=== PATIENT | female | born 1985 | race Caucasian/White ===

== ENCOUNTER 2018-07-18 12:02 | Emergency (ER) | payer OTHER, SELFPAY ==
[2018-07-18 12:10] VITALS: BP 133/99; PULSE 92; RESP 14; TEMP 36.2; O2SAT 98; BMI 41.2
--- NOTE | 2018-07-18 12:36 | PC.NURSE ---
Pt is 26 weeks . States she feels itchy all over. Denies rash, denies pain, denies edema, or any other symptoms. Diagnosed with gestational diabetes, managed by diet. Otherwise uncomplicated .
--- NOTE | 2018-07-18 12:45 | ED.SKABFB ---
HPI - Skin/Abscess/Foreign Bdy <Mary Grace Bloom PA-C - Last Filed: 07/18/18 17:45> General Chief complaint: Skin/Abscess/Foreign Body Stated complaint: 'itch everywhere' Time Seen by Provider: 07/18/18 12:44 Source: patient Mode of arrival: ambulatory Limitations: no limitations History of Present Illness HPI narrative: This 32-year-old female who is at 26 weeks gestation comes in today due to severe itching. She states that this is generalized the, has not noted tendency to itch in 1 area. She has not had any rash. She has not had any diet or medication change. She has not had wheeze, dyspnea, chest discomfort or other new symptoms with this and is feeling otherwise well. She was diagnosed with gestational diabetes which she is managing well with diet. She has not felt any change in movement or activity. She states that she came in today because the itching woke her up last night Related Data Home Medications Medication Instructions Recorded Confirmed vit 21-bsjk-rouro-dha 1 tab PO DAILY 07/18/18 07/18/18 [ + DHA] Allergies Allergy/AdvReac Type Severity Reaction Status Date / Time NSAIDS (Non-Steroidal Allergy Severe Anaphylaxis Verified 07/18/18 12:14 Anti-Inflamma Review of Systems <Mary Grace Bloom PA-C - Last Filed: 07/18/18 17:45> Review of Systems All systems reviewed & are unremarkable except as noted in HPI and below Exam <Mary Grace Bloom PA-C - Last Filed: 07/18/18 17:45> Narrative Exam Narrative: GENERAL APPEARANCE: Patient sitting comfortably, in no distress. HEENT: PERRL, EOMI, no scleral icterus, normal oropharynx NECK/THYROID: Neck supple, no masses LUNGS: Clear to auscultation bilaterally. HEART: Regular rate and rhythm without murmur, normal S1, S2, no S3 or S4. EXTREMITIES: No cyanosis or edema. No calf tenderness NEUROLOGIC: Alert and oriented, normal speech, gait and coordination. DERM: No jaundice or exanthem Initial Vital Signs Initial Vital Signs: Vital Signs Temperature 97.2 F L 07/18/18 12:10 Pulse Rate 92 H 07/18/18 12:10 Respiratory Rate 14 07/18/18 12:10 Blood Pressure 133/99 H 07/18/18 12:10 Pulse Oximetry 98 07/18/18 12:10 <DO Romina Mendoza Last Filed: 07/21/18 12:28> Initial Vital Signs Initial Vital Signs: Vital Signs Temperature 97.2 F L 07/18/18 12:10 Pulse Rate 92 H 07/18/18 12:10 Respiratory Rate 14 07/18/18 12:10 Blood Pressure 133/99 H 07/18/18 12:10 Pulse Oximetry 98 07/18/18 12:10 Course <JOHN Theodore Last Filed: 07/18/18 17:45> Additional Information: Reviewed findings with attending physician Dr. Rodriguez. No signs of acute cholestasis in this well-appearing patient. She agrees reasonable to discharge patient home and have her follow up as an outpatient. Orders Ordered: ED Orders 07/18/18 13:13 Complete Blood Count AUTO DIFF Stat Comprehensive Metabolic Panel Stat Lipase Stat Vital Signs - 8 hr 07/18/18 12:10 07/18/18 14:00 07/18/18 14:19 Temperature 97.2 F L Pulse Rate 92 H 87 84 Respiratory Rate 14 20 Blood Pressure 133/99 H Blood Pressure [Left Arm] 124/75 Pulse Oximetry 98 98 99 <DO Romina Mendoza Last Filed: 07/21/18 12:28> Orders Ordered: ED Orders 07/18/18 13:13 Complete Blood Count AUTO DIFF Stat Comprehensive Metabolic Panel Stat Lipase Stat Vital Signs - 8 hr 07/18/18 12:10 07/18/18 14:00 07/18/18 14:19 Temperature 97.2 F L Pulse Rate 92 H 87 84 Respiratory Rate 14 20 Blood Pressure 133/99 H Blood Pressure [Left Arm] 124/75 Pulse Oximetry 98 98 99 MDM - Skin/Abscess/Foreign Bdy <JOHN Theodore Last Filed: 07/18/18 17:45> Lab Data Result diagrams: 07/18/18 13:13 07/18/18 13:13 Lab Results 07/18/18 07/18/18 Range/Units 13:13 13:13 WBC 10.8 (4.5-11.0) X10^3/uL RBC 4.62 (4.0-5.2) X10^6/uL Hgb 12.6 (12.0-16.0) g/dL Hct 36.6 (36-46) % MCV 79.2 L (80-100) fL MCH 27.2 (26-34) PG MCHC 34.3 (30-36) % RDW 15.5 H (11.6-14.8) % Plt Count 252 (150-400) X10^3/uL Neut % (Auto) 75.8 H (50-75) % Lymph % (Auto) 14.6 L (25-40) % [place] % (Auto) 5.6 (3-14) % Eos % (Auto) 3.5 (2-4) % Baso % (Auto) 0.5 (0-2) % Neut # (Auto) 8200 H (2320-3779) /uL Sodium 139 (137-145) mmol/L Potassium 3.9 (3.4-5.1) mmol/L Chloride 107 (98-107) mmol/L Carbon Dioxide 23 (22-32) mmol/L BUN 6 L (7-17) mg/dL Creatinine 0.40 L (0.52-1.04) mg/dL Estimated GFR > 60.0 (>60) mL/min BUN/Creatinine Ratio 15.0 (6-22) Glucose 97 (70-100) mg/dL Calcium 8.9 (8.4-10.2) mg/dL Total Bilirubin 0.3 (0.2-1.3) mg/dL AST 15 (14-36) IU/L ALT 20 (9-52) IU/L Alkaline Phosphatase 71 (38-126) U/L Total Protein 6.8 (6.3-8.2) g/dL Albumin 3.7 (3.5-5.0) g/dL Globulin 3.1 (1.7-4.1) g/dL Albumin/Globulin Ratio 1.2 (1.0-2.8) Lipase 257 (23-300) U/L Urine Dip Bedside Urine Glucose Negative Bedside Urine Bilirubin - Negative Bedside Urine Ketone - Negative Urine Specific [place] 1.020 Bedside Urine Occult Blood - Negative Bedside Urine pH 6.0 Bedside Urine Protein - Negative Bedside Urine Urobilinogen - Negative Bedside Urine Nitrite - Negative Bedside Urine Leukocytes - Negative Esterase <Alana Rodriguez DO - Last Filed: 07/21/18 12:28> Lab Data Lab Results 07/18/18 07/18/18 Range/Units 13:13 13:13 WBC 10.8 (4.5-11.0) X10^3/uL RBC 4.62 (4.0-5.2) X10^6/uL Hgb 12.6 (12.0-16.0) g/dL Hct 36.6 (36-46) % MCV 79.2 L (80-100) fL MCH 27.2 (26-34) PG MCHC 34.3 (30-36) % RDW 15.5 H (11.6-14.8) % Plt Count 252 (150-400) X10^3/uL Neut % (Auto) 75.8 H (50-75) % Lymph % (Auto) 14.6 L (25-40) % [place] % (Auto) 5.6 (3-14) % Eos % (Auto) 3.5 (2-4) % Baso % (Auto) 0.5 (0-2) % Neut # (Auto) 8200 H (2924-2714) /uL Sodium 139 (137-145) mmol/L Potassium 3.9 (3.4-5.1) mmol/L Chloride 107 (98-107) mmol/L Carbon Dioxide 23 (22-32) mmol/L BUN 6 L (7-17) mg/dL Creatinine 0.40 L (0.52-1.04) mg/dL Estimated GFR > 60.0 (>60) mL/min BUN/Creatinine Ratio 15.0 (6-22) Glucose 97 (70-100) mg/dL Calcium 8.9 (8.4-10.2) mg/dL Total Bilirubin 0.3 (0.2-1.3) mg/dL AST 15 (14-36) IU/L ALT 20 (9-52) IU/L Alkaline Phosphatase 71 (38-126) U/L Total Protein 6.8 (6.3-8.2) g/dL Albumin 3.7 (3.5-5.0) g/dL Globulin 3.1 (1.7-4.1) g/dL Albumin/Globulin Ratio 1.2 (1.0-2.8) Lipase 257 (23-300) U/L Urine Dip Bedside Urine Glucose Negative Bedside Urine Bilirubin - Negative Bedside Urine Ketone - Negative Urine Specific [place] 1.020 Bedside Urine Occult Blood - Negative Bedside Urine pH 6.0 Bedside Urine Protein - Negative Bedside Urine Urobilinogen - Negative Bedside Urine Nitrite - Negative Bedside Urine Leukocytes - Negative Esterase Discharge Plan Departure Patient Disposition: Home Clinical Impression: pruritus Discharge Date/Time: 07/18/18 14:20 Interventions: ED Discharge Assessment Last Done: 07/18/18 14:19 Instructions: DI for Itching Activity Restrictions/Additional Instructions: Please take over the counter Benadryl as needed for itching (25-50mg at bedtime and 25mg every 4-6 hours daytime). Do not drive as it can make you sleepy. You should return if you have any acute changes such as rash, fever, or facial swelling as we talked about. Otherwise please follow up with your PCP or apprentice jockey to reassess in the next few days Prescriptions: No Action vit 19-gnbt-obmec-dha [ + DHA] 28 mg iron- 975 mcg-200 mg Combo Pack 1 tab PO DAILY RF: 0 Referrals: Maranda Stern MD [Physician] - Mansoor Manuel [Primary Care Provider] - <Alana Rodriguez DO - Last Filed: 07/21/18 12:28> Cosign ED Attending Cosignature Attestation: I was immediately available in the department for consultation. This documentation has been reviewed and I agree with assessment and plan. Supervised by Alana Rodriguez DO
--- NOTE | 2018-07-18 13:02 | ED_ITS ---
HPI - Skin/Abscess/Foreign Bdy <Mary Grace Bloom PA-C - Last Filed: 07/18/18 17:45> General Chief complaint: Skin/Abscess/Foreign Body Stated complaint: 'itch everywhere' Time Seen by Provider: 07/18/18 12:44 Source: patient Mode of arrival: ambulatory Limitations: no limitations History of Present Illness HPI narrative: This 32-year-old female who is at 26 weeks gestation comes in today due to severe itching. She states that this is generalized the, has not noted tendency to itch in 1 area. She has not had any rash. She has not had any diet or medication change. She has not had wheeze, dyspnea, chest discomfort or other new symptoms with this and is feeling otherwise well. She was diagnosed with gestational diabetes which she is managing well with diet. She has not felt any change in movement or activity. She states that she came in today because the itching woke her up last night Related Data Home Medications Medication Instructions Recorded Confirmed vit 77-hgmj-mzuls-dha 1 tab PO DAILY 07/18/18 07/18/18 [ + DHA] Allergies Allergy/AdvReac Type Severity Reaction Status Date / Time NSAIDS (Non-Steroidal Allergy Severe Anaphylaxis Verified 07/18/18 12:14 Anti-Inflamma Review of Systems <Mary Grace Bloom PA-C - Last Filed: 07/18/18 17:45> Review of Systems All systems reviewed & are unremarkable except as noted in HPI and below Exam <Mary Grace Bloom PA-C - Last Filed: 07/18/18 17:45> Narrative Exam Narrative: GENERAL APPEARANCE: Patient sitting comfortably, in no distress. HEENT: PERRL, EOMI, no scleral icterus, normal oropharynx NECK/THYROID: Neck supple, no masses LUNGS: Clear to auscultation bilaterally. HEART: Regular rate and rhythm without murmur, normal S1, S2, no S3 or S4. EXTREMITIES: No cyanosis or edema. No calf tenderness NEUROLOGIC: Alert and oriented, normal speech, gait and coordination. DERM: No jaundice or exanthem Initial Vital Signs Initial Vital Signs: Vital Signs Temperature 97.2 F L 07/18/18 12:10 Pulse Rate 92 H 07/18/18 12:10 Respiratory Rate 14 07/18/18 12:10 Blood Pressure 133/99 H 07/18/18 12:10 Pulse Oximetry 98 07/18/18 12:10 <DO Romina Mendoza Last Filed: 07/21/18 12:28> Initial Vital Signs Initial Vital Signs: Vital Signs Temperature 97.2 F L 07/18/18 12:10 Pulse Rate 92 H 07/18/18 12:10 Respiratory Rate 14 07/18/18 12:10 Blood Pressure 133/99 H 07/18/18 12:10 Pulse Oximetry 98 07/18/18 12:10 Course <JOHN Theodore Last Filed: 07/18/18 17:45> Additional Information: Reviewed findings with attending physician Dr. Rodriguez. No signs of acute cholestasis in this well-appearing patient. She agrees reasonable to discharge patient home and have her follow up as an outpatient. Orders Ordered: ED Orders 07/18/18 13:13 Complete Blood Count AUTO DIFF Stat Comprehensive Metabolic Panel Stat Lipase Stat Vital Signs - 8 hr 07/18/18 12:10 07/18/18 14:00 07/18/18 14:19 Temperature 97.2 F L Pulse Rate 92 H 87 84 Respiratory Rate 14 20 Blood Pressure 133/99 H Blood Pressure [Left Arm] 124/75 Pulse Oximetry 98 98 99 <DO Romina Mendoza Last Filed: 07/21/18 12:28> Orders Ordered: ED Orders 07/18/18 13:13 Complete Blood Count AUTO DIFF Stat Comprehensive Metabolic Panel Stat Lipase Stat Vital Signs - 8 hr 07/18/18 12:10 07/18/18 14:00 07/18/18 14:19 Temperature 97.2 F L Pulse Rate 92 H 87 84 Respiratory Rate 14 20 Blood Pressure 133/99 H Blood Pressure [Left Arm] 124/75 Pulse Oximetry 98 98 99 MDM - Skin/Abscess/Foreign Bdy <JOHN Theodore Last Filed: 07/18/18 17:45> Lab Data Result diagrams: 07/18/18 13:13 07/18/18 13:13 Lab Results 07/18/18 07/18/18 Range/Units 13:13 13:13 WBC 10.8 (4.5-11.0) X10^3/uL RBC 4.62 (4.0-5.2) X10^6/uL Hgb 12.6 (12.0-16.0) g/dL Hct 36.6 (36-46) % MCV 79.2 L (80-100) fL MCH 27.2 (26-34) PG MCHC 34.3 (30-36) % RDW 15.5 H (11.6-14.8) % Plt Count 252 (150-400) X10^3/uL Neut % (Auto) 75.8 H (50-75) % Lymph % (Auto) 14.6 L (25-40) % [place] % (Auto) 5.6 (3-14) % Eos % (Auto) 3.5 (2-4) % Baso % (Auto) 0.5 (0-2) % Neut # (Auto) 8200 H (9143-2799) /uL Sodium 139 (137-145) mmol/L Potassium 3.9 (3.4-5.1) mmol/L Chloride 107 (98-107) mmol/L Carbon Dioxide 23 (22-32) mmol/L BUN 6 L (7-17) mg/dL Creatinine 0.40 L (0.52-1.04) mg/dL Estimated GFR > 60.0 (>60) mL/min BUN/Creatinine Ratio 15.0 (6-22) Glucose 97 (70-100) mg/dL Calcium 8.9 (8.4-10.2) mg/dL Total Bilirubin 0.3 (0.2-1.3) mg/dL AST 15 (14-36) IU/L ALT 20 (9-52) IU/L Alkaline Phosphatase 71 (38-126) U/L Total Protein 6.8 (6.3-8.2) g/dL Albumin 3.7 (3.5-5.0) g/dL Globulin 3.1 (1.7-4.1) g/dL Albumin/Globulin Ratio 1.2 (1.0-2.8) Lipase 257 (23-300) U/L Urine Dip Bedside Urine Glucose Negative Bedside Urine Bilirubin - Negative Bedside Urine Ketone - Negative Urine Specific [place] 1.020 Bedside Urine Occult Blood - Negative Bedside Urine pH 6.0 Bedside Urine Protein - Negative Bedside Urine Urobilinogen - Negative Bedside Urine Nitrite - Negative Bedside Urine Leukocytes - Negative Esterase <Alana Rodriguez DO - Last Filed: 07/21/18 12:28> Lab Data Lab Results 07/18/18 07/18/18 Range/Units 13:13 13:13 WBC 10.8 (4.5-11.0) X10^3/uL RBC 4.62 (4.0-5.2) X10^6/uL Hgb 12.6 (12.0-16.0) g/dL Hct 36.6 (36-46) % MCV 79.2 L (80-100) fL MCH 27.2 (26-34) PG MCHC 34.3 (30-36) % RDW 15.5 H (11.6-14.8) % Plt Count 252 (150-400) X10^3/uL Neut % (Auto) 75.8 H (50-75) % Lymph % (Auto) 14.6 L (25-40) % [place] % (Auto) 5.6 (3-14) % Eos % (Auto) 3.5 (2-4) % Baso % (Auto) 0.5 (0-2) % Neut # (Auto) 8200 H (2996-1403) /uL Sodium 139 (137-145) mmol/L Potassium 3.9 (3.4-5.1) mmol/L Chloride 107 (98-107) mmol/L Carbon Dioxide 23 (22-32) mmol/L BUN 6 L (7-17) mg/dL Creatinine 0.40 L (0.52-1.04) mg/dL Estimated GFR > 60.0 (>60) mL/min BUN/Creatinine Ratio 15.0 (6-22) Glucose 97 (70-100) mg/dL Calcium 8.9 (8.4-10.2) mg/dL Total Bilirubin 0.3 (0.2-1.3) mg/dL AST 15 (14-36) IU/L ALT 20 (9-52) IU/L Alkaline Phosphatase 71 (38-126) U/L Total Protein 6.8 (6.3-8.2) g/dL Albumin 3.7 (3.5-5.0) g/dL Globulin 3.1 (1.7-4.1) g/dL Albumin/Globulin Ratio 1.2 (1.0-2.8) Lipase 257 (23-300) U/L Urine Dip Bedside Urine Glucose Negative Bedside Urine Bilirubin - Negative Bedside Urine Ketone - Negative Urine Specific [place] 1.020 Bedside Urine Occult Blood - Negative Bedside Urine pH 6.0 Bedside Urine Protein - Negative Bedside Urine Urobilinogen - Negative Bedside Urine Nitrite - Negative Bedside Urine Leukocytes - Negative Esterase Discharge Plan Departure Patient Disposition: Home Clinical Impression: pruritus Discharge Date/Time: 07/18/18 14:20 Interventions: ED Discharge Assessment Last Done: 07/18/18 14:19 Instructions: DI for Itching Activity Restrictions/Additional Instructions: Please take over the counter Benadryl as needed for itching (25-50mg at bedtime and 25mg every 4-6 hours daytime). Do not drive as it can make you sleepy. You should return if you have any acute changes such as rash, fever, or facial swelling as we talked about. Otherwise please follow up with your PCP or sock liner to reassess in the next few days Prescriptions: No Action vit 17-wnvr-jgwlm-dha [ + DHA] 28 mg iron- 975 mcg-200 mg Combo Pack 1 tab PO DAILY RF: 0 Referrals: Maranda Stern MD [Physician] - Mansoor Manuel [Primary Care Provider] - <Alana Rodriguez DO - Last Filed: 07/21/18 12:28> Cosign ED Attending Cosignature Attestation: I was immediately available in the department for consultation. This documentation has been reviewed and I agree with assessment and plan. Supervised by Alana Rodriguez DO
[2018-07-18 13:17] LABS: Add Manual Diff / Slide Review NO; Basophils Percent Auto 0.5 % (0-2); Eosinophils Percent Auto 3.5 % (2-4); Hematocrit 36.6 % (36-46); Hemoglobin 12.6 g/dL (12.0-16.0); Lymphocytes Percent Auto 14.6 % (25-40); Mean Corpuscular HGB Conc 34.3 % (30-36); Mean Corpuscular Hemoglobin 27.2 PG (26-34); Mean Corpuscular Volume 79.2 fL (80-100); Monocytes Percent Auto 5.6 % (3-14); Neutrophils Absolute Auto 8200 /uL (3000-5900); Neutrophils Percent Auto 75.8 % (50-75); Platelet Count 252 X10^3/uL (150-400); Red Blood Cell Count 4.62 X10^6/uL (4.0-5.2); Red Cell Distribution Width 15.5 % (11.6-14.8); White Blood Cell Count 10.8 X10^3/uL (4.5-11.0)
[2018-07-18 13:38] LABS: Alanine Aminotransferase 20 IU/L (9-52); Albumin 3.7 g/dL (3.5-5.0); Albumin Globulin Ratio 1.2 (1.0-2.8); Alkaline Phosphatase 71 U/L (38-126); Aspartate Aminotransferase 15 IU/L (14-36); Bilirubin Total 0.3 mg/dL (0.2-1.3); Blood Urea Nitrogen 6 mg/dL (7-17); Calcium 8.9 mg/dL (8.4-10.2); Carbon Dioxide 23 mmol/L (22-32); Chloride 107 mmol/L (98-107); Estimated Glomerular Filt Rate > 60.0 mL/min (>60); Globulin 3.1 g/dL (1.7-4.1); Glucose 97 mg/dL (70-100); HEMOLYSIS < 15 (0-50); Lipase 257 U/L (23-300); Potassium 3.9 mmol/L (3.4-5.1); Sodium 139 mmol/L (137-145); Total Protein 6.8 g/dL (6.3-8.2)
[2018-07-18 14:00] VITALS: BP 124/75; PULSE 87; O2SAT 98
[2018-07-18 14:19] VITALS: PULSE 84; RESP 20; O2SAT 99
== END 2018-07-18 14:20 | disposition home or self-care (01) ==
PROVIDERS: Emergency Provider Internal Medicine; PCP Family Medicine
DX: O99.719 Diseases of the skin and subcutaneous tissue complicating pregnancy, unspecified trimester (principal); Z3A.26 26 weeks gestation of pregnancy
CPT/HCPCS: 36415; 80053; 81003; 83690; 85025; 99282; 99283

== ENCOUNTER 2019-02-25 10:43 | Emergency (ER) | payer OTHER, SELFPAY ==
[2019-02-25 10:52] VITALS: BP 141/101; PULSE 78; RESP 20; TEMP 36.5; O2SAT 97; BMI 41.9
--- NOTE | 2019-02-25 10:57 | ED_ITS ---
HPI - Neck Pain/Injury General Chief Complaint: Neck Pain/Injury Stated Complaint: states neck pain w/ movement, tingling rt hand/arm Time Seen by Provider: 02/25/19 10:50 Source: patient and family Mode of arrival: ambulatory Limitations: no limitations History of Present Illness HPI Narrative: 33-year-old female nonsmoker without significant medical problems presents with a chief complaint severe left-sided neck pain after reaching her arms up and over her head and feeling a pop. Since then she has been unable to move her head or her neck as it exacerbates the pain. She has significant pain the left side of her neck into her left shoulder but also some tingling down her right. She denies any direct trauma to the bone. She denies weakness her upper extremities. she has no history of neck trouble. She is currently breast- feeding and infant MD complaint: neck pain and neck injury Onset (ago): minute(s) Place: home Radiation: left shoulder Severity: moderate Quality: burning and sharp Duration: constant Relieving factors: remaining still Exacerbating factors: movement of extremity and movement of neck Context: other Associated symptoms: tingling Treatments prior to arrival: none Related Data Home Medications Medication Instructions Recorded Confirmed vit 10-mift-kunoh-dha 1 tab PO DAILY 07/18/18 07/18/18 [ + DHA] Previous Rx's Medication Instructions Recorded baclofen 10 mg PO BID PRN #10 tab 02/25/19 hydrocodone-acetaminophen 1 tab PO Q4-6H PRN #10 tab 02/25/19 methylprednisolone [Medrol (Venkat)] See Rx Instructions .ROUTE 02/25/19 .COMPLEX #21 each Allergies Allergy/AdvReac Type Severity Reaction Status Date / Time NSAIDS (Non-Steroidal Allergy Severe Anaphylaxis Verified 07/18/18 12:14 Anti-Inflamma Review of Systems Constitutional Denies chills, Denies fever(s), Denies lethargy and Denies weakness Eyes Denies change in vision, Denies eye discharge, Denies irritation and Denies loss of vision ENT Ears, Nose, Mouth, and Throat: Denies change in voice, Reports neck pain and Denies sore throat Cardiovascular Denies chest pain, Denies irregular heart rhythm, Denies lightheadedness, Denies palpitations, Denies dyspnea, Denies dyspnea on exertion and Denies orthopnea Respiratory Denies cough, Denies dyspnea, Denies dyspnea on exertion and Denies wheezing Gastrointestinal Gastrointestinal: Denies abdominal pain, Denies change in bowel habits, Denies diarrhea, Denies nausea and Denies vomiting Genitourinary Denies hematuria, Denies flank pain, Denies urinary incontinence and Denies urinary urgency Musculoskeletal Reports neck pain, Reports numbness, Reports radiating pain into limb and Reports tingling Integumentary/Breasts Denies pruritus, Denies erythema, Denies rash and Denies wounds Neurologic Denies confusion, Denies loss of vision, Reports numbness, Reports tingling and Denies weakness Psychiatric Denies anxiety, Denies confusion, Denies depression, Denies homicidal ideation and Denies suicidal ideation Endocrine Denies palpitations Hematologic/Lymphatic Denies easy bruising Allergic/Immunologic Denies wheezing [facility] Medical History Endometriosis (Acute) Gestational diabetes (Acute) Surgical History Status post cholecystectomy (Resolved) Social History (Updated 07/18/18 @ 13:01 by Mary Grace Bloom PA-C) Smoking Status: Former smoker alcohol intake: never substance use type: does not use Social History Smoking Status: Former smoker alcohol intake: never substance use type: does not use Exam Narrative Exam Narrative: GENERAL: 33-year-old female appears stated age, clearly uncomfortable and sitting very still HEAD: Atraumatic. Normocephalic. No temporal or scalp tenderness. EYES: Pupils equal round and reactive. Extraocular motions intact. No scleral icterus. No injection or drainage. ENT: Nose without bleeding, purulent drainage or septal hematoma. Throat without erythema, tonsillar hypertrophy or exudate. Uvula midline. Airway patent. NECK: Trachea midline. No JVD or lymphadenopathy. Tenderness to palpation of the paraspinal muscles of the left side of her neck. Patient has minimal change with axial loading of the cervical spine. No midline tenderness or step-offs CARDIOVASCULAR: Regular rate and rhythm without murmurs, gallops, or rubs. RESPIRATORY: Clear to auscultation. Breath sounds equal bilaterally. No wheezes, rales, or rhonchi. GASTROINTESTINAL: Abdomen soft, non-tender, nondistended. No hepato- splenomegaly, or palpable masses. No guarding. EXTREMITIES: Patient has full strength and range of motion of bilateral upper extremities. patient reports bit of numbness and tingling over the volar forearm and the tips of her fingers BACK: Nontender without deformity or crepitance. No flank tenderness. NEURO: AOx3. SKIN: No rash or erythema. Initial Vital Signs Initial Vital Signs: Vital Signs Temperature 97.7 F 02/25/19 10:52 Pulse Rate 78 02/25/19 10:52 Respiratory Rate 20 02/25/19 10:52 Blood Pressure 141/101 H 02/25/19 10:52 Pulse Oximetry 97 02/25/19 10:52 Procedures Orthopedic Splinting/Casting Injury #1: Other Orthopedic Equipment: other (soft cervical collar) Placed by: Nursing Course Course Narrative: Given the popping sensation the patient fell, this severe radiating pain down left arm and numbness and tingling down the right arm it was clear that MRI is indicated for evaluation of possible spinal cord versus disc involvement. Orders Ordered: ED Orders 02/25/19 11:28 MR cervical spine wo con Stat Reevaluation(s) Reevaluation #1: Patient feels improvement with soft cervical collar Vital Signs - 8 hr 02/25/19 10:52 02/25/19 12:21 Temperature 97.7 F Pulse Rate 78 81 Respiratory Rate 20 18 Blood Pressure 141/101 H Blood Pressure [Left Arm] 131/96 H Pulse Oximetry 97 97 Discharge Plan Departure Patient Disposition: Home Clinical Impression: Cervical radiculopathy Strain of neck muscle Qualifiers: Encounter type: initial encounter Qualified Code(s): S16.1XXA - Strain of muscle, fascia and tendon at neck level, initial encounter Discharge Date/Time: 02/25/19 12:51 Interventions: ED Discharge Assessment Last Done: 02/25/19 12:51 Instructions: Whiplash Activity Restrictions/Additional Instructions: *You have been diagnosed with acute cervical strain with radiculopathy *What to do: *Take medications as directed *Follow up with your primary care provider in 2-3 days, call for an appointment. Let them know you were seen in the Emergency Department and that we ask that you be seen in follow up *Return to ER if you should have any new, worsening or concerning symptoms * where the soft cervical collar for comfort *As we discussed a small amount of the baclofen may enter the breast milk, but this is thought to be safe (and is routinely used) if you are feeding infants over 2 months *As we discussed please pump and dump for at least a day after you take vicodin, if you choose to at all as it will make its way into the breast milk Prescriptions: New methylprednisolone [Medrol (Venkat)] 4 mg tablets,dose pack See Rx Instructions .ROUTE .COMPLEX Qty: 21 RF: 0 hydrocodone-acetaminophen 5-325 mg tablet 1 tab PO Q4-6H PRN (Reason: pain) Qty: 10 RF: 0 baclofen 10 mg tablet 10 mg PO BID PRN (Reason: spasms) Qty: 10 RF: 0 No Action vit 33-beum-piwmt-dha [ + DHA] 28 mg iron- 975 mcg-200 mg Combo Pack 1 tab PO DAILY RF: 0 Referrals: Mansoor Manuel [Primary Care Provider] -
--- NOTE | 2019-02-25 11:28 | DI.MRI.S_ITS ---
PROCEDURE: MR CERVICAL SPINE WO CON INDICATIONS: pop in neck, severe pain L arm, numbness R arm TECHNIQUE: Noncontrast sagittal T1 spin echo and T2 fast spin echo, sagittal STIR, foraminal oblique sagittal T2 fast spin echo, and axial gradient echo or T2 fast spin echo through the cervical spine. COMPARISON: None. FINDINGS: Image quality: Excellent. Alignment and Curvature: There is mild appearance of cervical straightening. Bone Marrow: Marrow demonstrates normal overall signal. Spinal Cord: Visualized spinal cord has normal size and signal. No cerebellar tonsillar herniation. Paraspinous Soft Tissues: No paravertebral masses. Prevertebral soft tissues are normal in thickness. C2-C3: No disc bulge, spinal stenosis or foraminal narrowing. C3-C4: No disc bulge or spinal stenosis. Minimal to mild left foraminal narrowing. C4-C5: No disc bulge, spinal stenosis or foraminal narrowing. C5-C6: No disc bulge, spinal stenosis or foraminal narrowing. C6-C7: No disc bulge, spinal stenosis or foraminal narrowing. C7-T1: No disc bulge, spinal stenosis or foraminal narrowing. IMPRESSION: 1. Minimal mild left foraminal narrowing. Otherwise, unremarkable exam. Dictated by: Anna Rudolph M.D. on 02/25/2019 at 12:15 Approved by: Anna Rudolph M.D. on 02/25/2019 at 12:18
[2019-02-25 12:21] VITALS: BP 131/96; PULSE 81; RESP 18; O2SAT 97
== END 2019-02-25 12:51 | disposition home or self-care (01) ==
PROVIDERS: Emergency Provider Emergency Medicine; PCP Family Medicine
DX: S16.1XXA Strain of muscle, fascia and tendon at neck level, initial encounter (principal); R20.2 Paresthesia of skin
CPT/HCPCS: 72141; 99282; 99283

== ENCOUNTER → 2022-06-10 15:37 | Outpatient (CLI) | payer OTHER, SELFPAY ==
--- NOTE | 2022-06-10 15:38 | DI.MRI.S_ITS ---
PROCEDURE: MR ANKLE RT WO CON INDICATIONS: Pain in right ankle and foot TECHNIQUE: Noncontrast sagittal T1 spin echo and T2 fast spin echo with fat saturation, axial proton density fast spin echo and T2 fast spin echo with fat saturation, coronal T1 spin echo and T2 fast spin echo with fat saturation through the ankle/hindfoot. COMPARISON: None. FINDINGS: Image quality: Excellent. Bones and joints: No bone marrow contusions or fractures. No hindfoot coalitions. There is a focal region of low T1 and high T2 signal intensity within the lateral talar dome, measuring roughly 10 mm anteroposterior by 8 mm transverse by 4 mm craniocaudal. Small tibiotalar joint effusion. Medial structures: The posterior tibialis, flexor digitorum longus, and flexor hallucis longus tendons are intact. The posterior tibial neurovascular bundle appears normal within the tarsal tunnel, without extrinsic mass effect. The deep layer (anterior and posterior tibiotalar ligaments) and superficial layer (tibionavicular, tibiospring, and tibiocalcaneal ligaments) of the deltoid ligament appear normal. The spring ligament components (superomedial calcaneonavicular, medioplantar oblique calcaneonavicular, and inferoplantar longitudinal ligaments) are intact. Lateral structures: The anterior talofibular, calcaneofibular, and posterior talofibular ligaments appear intact. More superiorly, the anterior and posterior tibiofibular ligaments appear intact, as is the intermalleolar ligament. The tibiofibular syndesmosis is normal in width at 2 mm or less. The peroneus longus and brevis tendons demonstrate normal location and morphology. Adjacent bony peroneal tubercle and retrotrochlear prominence are normal in size. The sinus tarsi demonstrates normal fatty signal, without edema, fibrosis, or cyst formation. Visualized sinus tarsi components (cervical ligament, interosseous talocalcaneal ligament, roots of the inferior extensor retinaculum) appear normal. The calcaneonavicular and calcaneocuboid components of the bifurcate ligament appear intact. The dorsal calcaneocuboid ligament appears intact. Anterior structures: The tibialis anterior, extensor hallucis longus, and extensor digitorum longus tendons appear intact. The dorsal talonavicular ligament appears intact. Posterior and plantar structures: There is moderate grade intrasubstance tearing of the medial aspect of the Achilles tendon at the calcaneal insertion site. Moderate ill-defined T2 signal elevation surrounds the calcaneal insertion of the Achilles tendon. Medial and lateral bands of the plantar fascia are of normal thickness. No abductor digiti quinti muscle atrophy to suggest Baker neuropathy. IMPRESSION: 1. Osteochondral injury of the lateral talar dome. 2. Partial-thickness tearing of the Achilles tendon. 3. Achilles tendinitis. 4. Small ankle joint effusion. Dictated by: Priya To M.D. on 06/11/2022 at 9:50 Approved by: Priya To M.D. on 06/11/2022 at 9:57
--- NOTE | 2022-06-10 15:39 | DI.MRI.S_ITS ---
PROCEDURE: MR FOOT RT WO CON INDICATIONS: Pain in right ankle and foot TECHNIQUE: Noncontrast sagittal T1 spin echo and T2 fast spin echo with fat saturation, long-axis T1 spin echo and T2 fast spin echo with fat saturation, short-axis T1 spin echo and T2 fast spin echo with fat saturation through the forefoot. COMPARISON: None. FINDINGS: Image quality: Excellent. Bones and joints: No bone marrow contusions or metatarsal stress fractures. Mild periarticular osteophyte formation at the 1st metatarsophalangeal joint. 1st metatarsophalangeal joint effusion is present. The sesamoid bones appear in expected positions, without internal edema. No metatarsophalangeal joint degeneration. No intraosseous lesions. Soft tissues: The visualized plantar foot muscles demonstrate normal signal and bulk. Visualized flexor and extensor tendons appear intact, without tenosynovitis. The distal insertions of the peroneus brevis and longus tendons appear intact. The principal Lisfranc ligament appears intact. Small amount of fluid is interposed between the 1st and 2nd, 2nd and 3rd, 3rd and 4th metatarsal heads. collections. Sagittal images demonstrate no evidence for plantar plate tears. IMPRESSION: 1. Intermetatarsal bursitis within the 1st, 2nd, and 3rd interspaces. 2. 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 Dictated by: Priya To M.D. on 06/11/2022 at 10:02 Approved by: Priya To M.D. on 06/11/2022 at 10:04
== END ==
PROVIDERS: PCP Family Medicine; Referring Provider Family Medicine; Visit Provider Family Medicine
DX: S86.011A Strain of right Achilles tendon, initial encounter (principal); M76.61 Achilles tendinitis, right leg; M25.471 Effusion, right ankle; M77.51 Other enthesopathy of right foot and ankle; M19.071 Primary osteoarthritis, right ankle and foot; M25.571 Pain in right ankle and joints of right foot; M79.671 Pain in right foot; M25.474 Effusion, right foot
CPT/HCPCS: 73718; 73721

== ENCOUNTER 2023-05-06 12:17 | Emergency (ER) | payer OTHER, SELFPAY ==
[2023-05-06 12:20] VITALS: BP 123/82; PULSE 77; RESP 16; TEMP 37; O2SAT 99; BMI 29.8
--- NOTE | 2023-05-06 12:35 | ED_ITS ---
HPI - Weakness General Chief complaint: Weakness Stated complaint: Fever, Passed out Time Seen by Provider: 05/06/23 12:25 Source: patient and family Mode of arrival: Ambulatory History of Present Illness HPI Narrative: 37-year-old female former smoker has had sore throat and fever with poor oral intake for the past few days. She had been seen and evaluated at an outside facility and had negative swabs for COVID and flu, negative for strep and throat culture obtained. She, as stated, has had decreased oral intake and earlier today after standing felt lightheaded and had a syncopal versus near syncopal event. She suffered no injury as a consequence. She has no headache or blurred vision. She denies runny nose, cough, nausea or vomiting. She does have a sore throat. Related Data Home Medications Medication Instructions Recorded Confirmed vits,calcium 91-iron 28 1 tab PO DAILY 07/18/18 07/18/18 mg-folic 975 mcg-dha 200 mg oral pack ( + DHA) Previous Rx's Medication Instructions Recorded baclofen 10 mg tablet 10 mg PO BID PRN spasms #10 tabs 02/25/19 hydrocodone 5 mg-acetaminophen 325 1 tab PO Q4-6H PRN pain #10 tabs 02/25/19 mg tablet methylprednisolone 4 mg tablets in See Rx Instructions PO .COMPLEX 02/25/19 a dose pack (Medrol (Venkat)) #21 ea ondansetron 4 mg disintegrating 4 mg PO TID-QID PRN nausea and 05/06/23 tablet vomiting #10 tabs Allergies Allergy/AdvReac Type Severity Reaction Status Date / Time NSAIDS (Non-Steroidal Allergy Severe Anaphylaxis Verified 05/06/23 12:28 Anti-Inflamma Review of Systems Review of Systems Narrative: GENERAL: See HPI HEENT: See HPI RESPIRATORY: Denies dyspnea, cough, wheezing, hemoptysis, sputum. CARDIOVASCULAR: Denies chest pain, palpitations, orthopnea, edema, GASTROINTESTINAL: Denies nausea, vomiting, abdominal pain, diarrhea, constipation, melena. : Denies dysuria, frequency, incontinence, hematuria, urinary retention. MUSCULOSKELETAL: denies weakness, joint pain, or bony pain SKIN: Denies rash, skin lesions, or other NEUROLOGIC: Denies weakness, headache, numbness, change in speech, confusion, seizures, incoordination. PSYCHIATRIC: No concerning psychosocial issues. 12 point review of systems is negative except for those stated above Patient History Medical History (Updated 05/06/23 @ 14:11 by Alex Haro DO) Endometriosis Gestational diabetes Surgical History Status post cholecystectomy Social History Smoking Status: Former smoker alcohol intake: never substance use type: does not use Smoking Status: Former smoker alcohol intake frequency: 0-2 drinks per day Substance Use Type: does not use Exam Narrative Exam Narrative: GENERAL: [37] year old patient appears stated age. Well-developed patient, in mild distress. HEAD: Atraumatic. Normocephalic. EYES: Pupils equal round and reactive. Extraocular motions intact. No scleral icterus. No injection or drainage. ENT: Nose without bleeding, purulent drainage. Moderate erythema, no tonsillar hypertrophy or exudate. Airway patent. Controlling secretions, no mass or uvular pointing to suggest abscess NECK: Trachea midline. Non tender CARDIOVASCULAR: Regular rate and rhythm without murmurs, gallops, or rubs. RESPIRATORY: Clear to auscultation. Breath sounds equal bilaterally. No wheezes, rales, or rhonchi. GASTROINTESTINAL: Abdomen soft, non-tender, nondistended. EXTREMITIES: No edema or joint tenderness. BACK: Nontender without deformity or crepitance. No flank tenderness. NEURO: AOx3. SKIN: No rash or erythema of visible areas Initial Vital Signs Initial Vital Signs: Vital Signs Temperature 98.6 F 05/06/23 12:20 Pulse Rate 77 05/06/23 12:20 Respiratory Rate 16 05/06/23 12:20 Blood Pressure 123/82 05/06/23 12:20 Pulse Oximetry 99 05/06/23 12:20 Oxygen Delivery Method Room Air 05/06/23 12:20 Course Orders Ordered: Discontinued Medications Dexamethasone (Dexamethasone 10 Mg/Ml Vial) 10 mg IV NOW ONE Stop: 05/06/23 12:45 Last Admin: 05/06/23 13:16 Dose: 10 mg Documented By: NR Sodium Chloride (Normal Saline 0.9%) 1,000 mls @ 1,000 mls/hr IV BOLUS ONE Stop: 05/06/23 13:43 Last Infusion: 05/06/23 14:15 Dose: 0 mls/hr Documented By: Admin: 05/06/23 13:16 Dose: 1,000 mls/hr Documented By: NR Penicillin G Benzathine (Penicillin G Benzathine 1,200,000 Unit/2 Ml Syringe) 1,200,000 unit IM NOW ONE Stop: 05/06/23 13:55 Last Admin: 05/06/23 14:16 Dose: 1,200,000 unit Documented By: NR Vital Signs Vital signs: Vital Signs - 8 hr 05/06/23 12:20 Temperature 98.6 F Pulse Rate 77 Respiratory Rate 16 Blood Pressure 123/82 Pulse Oximetry 99 Oxygen Delivery Method Room Air MDM - Weakness Lab Data 05/06/23 13:01 05/06/23 13:01 Labs: Lab Results 05/06/23 05/06/23 05/06/23 Range/Units 12:55 12:55 13:01 WBC (4.5-11.0) X10^3/uL RBC (4.0-5.2) X10^6/uL Hgb (12.0-16.0) g/dL Hct (36-46) % MCV (80-100) fL MCH (26-34) PG MCHC (30-36) % RDW (11.6-14.8) % Plt Count (150-400) X10^3/uL Neut % (Auto) (50-75) % Lymph % (Auto) (25-40) % [place] % (Auto) (3-14) % Eos % (Auto) (2-4) % Baso % (Auto) (0-2) % Neut # (Auto) (4198-5784) /uL Lymph # (Auto) (0682-9107) /uL [place] # (Auto) (0-900) /uL Eos # (Auto) (0-450) /uL Baso # (Auto) (0-100) /uL Sodium (137-145) mmol/L Potassium (3.4-5.1) mmol/L Chloride (98-107) mmol/L Carbon Dioxide (22-32) mmol/L BUN (7-17) mg/dL Creatinine (0.52-1.04) mg/dL Estimated GFR (>60) mL/min BUN/Creatinine Ratio (6-22) Glucose (70-100) mg/dL Calcium (8.4-10.2) mg/dL Magnesium (1.6-2.3) mg/dL Ketones 0.02 (<0.27) mmol/L Chlamy pneumoniae PCR (Not Detect) Adenovirus (PCR) (Not Detect) B. pertussis DNA (PCR) (Not Detecte) B.parapertussis DNA PCR (Not Detecte) Coronavirus OC43 (PCR) (Not Detect) Coronavirus HKU1 (PCR) (Not Detect) Coronavirus 229E (PCR) (Not Detect) SARS-CoV-2 (PCR) (Not Detecte) Coronavirus NL63 (PCR) (Not Detect) Monoscreen Negative (Negative) Human Metapneumovir PCR (Not Detect) Influenza Type A (PCR) (Not Detect) Influenza Type B (PCR) (Not Detect) M. pneumoniae (PCR) (Not Detect) Parainfluenza 1 (PCR) (Not Detect) Parainfluenza 2 (PCR) (Not Detect) Parainfluenza 3 (PCR) (Not Detect) Parainfluenza 4 (PCR) (Not Detect) RSV (PCR) (Not Detect) Entero/Rhino (PCR) (Not Detect) Group A Strep (PCR) Positive H (Negative) 05/06/23 05/06/23 05/06/23 Range/Units 13:01 13:01 13:01 WBC 12.8 H (4.5-11.0) X10^3/uL RBC 5.00 (4.0-5.2) X10^6/uL Hgb 14.0 (12.0-16.0) g/dL Hct 41.5 (36-46) % MCV 83.0 (80-100) fL MCH 28.0 (26-34) PG MCHC 33.7 (30-36) % RDW 13.6 (11.6-14.8) % Plt Count 328 (150-400) X10^3/uL Neut % (Auto) 65.0 (50-75) % Lymph % (Auto) 24.7 L (25-40) % [place] % (Auto) 8.5 (3-14) % Eos % (Auto) 1.0 L (2-4) % Baso % (Auto) 0.8 (0-2) % Neut # (Auto) 8300 H (9099-0370) /uL Lymph # (Auto) 3200 (9760-6498) /uL [place] # (Auto) 1100 H (0-900) /uL Eos # (Auto) 100 (0-450) /uL Baso # (Auto) 100 (0-100) /uL Sodium 137 (137-145) mmol/L Potassium 4.0 (3.4-5.1) mmol/L Chloride 101 (98-107) mmol/L Carbon Dioxide 31 (22-32) mmol/L BUN 13 (7-17) mg/dL Creatinine 0.58 (0.52-1.04) mg/dL Estimated GFR > 60 (>60) mL/min BUN/Creatinine Ratio 22.4 H (6-22) Glucose 87 (70-100) mg/dL Calcium 9.0 (8.4-10.2) mg/dL Magnesium 1.9 (1.6-2.3) mg/dL Ketones (<0.27) mmol/L Chlamy pneumoniae PCR Not detected (Not Detect) Adenovirus (PCR) Not detected (Not Detect) B. pertussis DNA (PCR) Not detected (Not Detecte) B.parapertussis DNA PCR Not detected (Not Detecte) Coronavirus OC43 (PCR) Not detected (Not Detect) Coronavirus HKU1 (PCR) Not detected (Not Detect) Coronavirus 229E (PCR) Not detected (Not Detect) SARS-CoV-2 (PCR) Not detected (Not Detecte) Coronavirus NL63 (PCR) Not detected (Not Detect) Monoscreen (Negative) Human Metapneumovir PCR Not detected (Not Detect) Influenza Type A (PCR) Not detected (Not Detect) Influenza Type B (PCR) Not detected (Not Detect) M. pneumoniae (PCR) Not detected (Not Detect) Parainfluenza 1 (PCR) Not detected (Not Detect) Parainfluenza 2 (PCR) Not detected (Not Detect) Parainfluenza 3 (PCR) Not detected (Not Detect) Parainfluenza 4 (PCR) Not detected (Not Detect) RSV (PCR) Not detected (Not Detect) Entero/Rhino (PCR) Not detected (Not Detect) Group A Strep (PCR) (Negative) MDM Narrative Medical decision making narrative: [37] year old patient presents with sore throat, fever and orthostatic syncope Multiple etiologies for patient's symptoms considered including, but not limited to: [Strep versus mono versus viral versus peritonsillar abscess versus dehydration versus orthostatic versus arrhythmia versus other] Prior Charts reviewed in our EMR Primary Historian: patient Labs reviewed and interpreted by myself: Rapid strep is positive. Viral screen and mono negative. Slight leukocytosis with relative left shift. Electrolytes within normal Pertinent Exam: No obvious distress, controlling secretions and absent airway difficulties. She does have some erythema in her posterior pharynx without obvious swelling or exudate. Patient's symptoms improved over duration of stay with above-stated therapies. She is tolerating orals, pain is well controlled, vital signs are stable, she is not dizzy, nor weak or lightheaded. Findings and discharge diagnosis discussed with patient/family followed by verbalization of understanding Return precautions discussed with patient/family whom verbalize understanding of diagnosis and plan Discharge Plan Departure Patient Disposition: Home Clinical Impression: Strep pharyngitis Instructions: DI for Dehydration -- Adult, DI for Strep Throat Activity Restrictions/Additional Instructions: *You have been diagnosed with [strep pharyngitis] *What to do: *Please continue to take your regular medications as directed. [x] New medication prescriptions sent to your pharmacy: [ [facility]] [ ] New medication written as a paper prescription [ ] No new medications given *Please follow up with your primary care provider in 2-3 days, call for an cassidy ointment. Let them know you were seen in the Emergency Department and that we ask that you be seen in follow up. We will electronically transmit a record of today's note if your PCP is in our system *If you do not have a primary care provider please contact the [facility] Resource line at [phone]. They will ask some questions about your medical history and help get you set up with a doctor in the community. *Return to Emergency Department if you should have any new, worsening or con cerning symptoms, such as [fever greater than 101 F, shaking chills, worsening pain, persistent vomiting or other bothersome symptoms] Prescriptions: New ondansetron 4 mg tablet,disintegrating 4 mg PO TID-QID PRN (Reason: nausea and vomiting) Qty: 10 0RF No Action vit 19-zoqo-jbejt-dha [ + DHA] 28 mg iron- 975 mcg-200 mg Combo Pack 1 tab PO DAILY methylprednisolone [Medrol (Venkat)] 4 mg tablets,dose pack See Rx Instructions .ROUTE .COMPLEX Qty: 21 0RF Rx Instructions: orally per package directions hydrocodone-acetaminophen 5-325 mg tablet 1 tab PO Q4-6H PRN (Reason: pain) Qty: 10 0RF baclofen 10 mg tablet 10 mg PO BID PRN (Reason: spasms) Qty: 10 0RF Referrals: Jose Alfredo Damico MD [Primary Care Provider] - Stand Alone Forms: Patient Portal/API, Work Release Note
[2023-05-06] MEDS: SODIUM CHLORIDE 0.9% 1,000 ML 1000 ML IV (13:16)
[2023-05-06] MEDS: DEXAMETHASONE 10 MG/ML VIAL IV (13:16)
[2023-05-06 13:19] LABS: Add Manual Diff / Slide Review NO; Basophils Absolute Auto 100 /uL (0-100); Basophils Percent Auto 0.8 % (0-2); Eosinophils Absolute Auto 100 /uL (0-450); Hematocrit 41.5 % (36-46); Lymphocytes Absolute Auto 3200 /uL (1100-4500); Lymphocytes Percent Auto 24.7 % (25-40); Mean Corpuscular HGB Conc 33.7 % (30-36); Monocytes Absolute Auto 1100 /uL (0-900); Monocytes Percent Auto 8.5 % (3-14); Neutrophils Absolute Auto 8300 /uL (1500-7000); Platelet Count 328 X10^3/uL (150-400); Red Cell Distribution Width 13.6 % (11.6-14.8); White Blood Cell Count 12.8 X10^3/uL (4.5-11.0)
[2023-05-06 13:28] LABS: Monotest Negative (Negative)
[2023-05-06 13:30] LABS: Strep Grp A by PCR Rapid Positive (Negative)
[2023-05-06 13:32] LABS: BUN Creatinine Ratio 22.4 (6-22); Blood Urea Nitrogen 13 mg/dL (7-17); Carbon Dioxide 31 mmol/L (22-32); Chloride 101 mmol/L (98-107); Estimated Glomerular Filt Rate > 60 mL/min (>60); Glucose 87 mg/dL (70-100); HEMOLYSIS < 15 (0-50); Magnesium 1.9 mg/dL (1.6-2.3); Sodium 137 mmol/L (137-145)
[2023-05-06 13:34] LABS: Ketones (Beta-Hydroxybutyrate) 0.02 mmol/L (<0.27)
[2023-05-06 14:16] LABS: Adenovirus Not Detected (Not Detect); B. parapertussis Not Detected (Not Detecte); Bordetella pertussis Not Detected (Not Detecte); Chlamydophila pneumoniae Not Detected (Not Detect); Coronavirus 229E Not Detected (Not Detect); Coronavirus HKU1 Not Detected (Not Detect); Coronavirus NL 63 Not Detected (Not Detect); Coronavirus OC43 Not Detected (Not Detect); Human Metapneumovirus Not Detected (Not Detect); Human Rhinovirus/Enterovirus Not Detected (Not Detect); Influenza A Not Detected (Not Detect); Influenza B Not Detected (Not Detect); Mycoplasma pneumoniae Not Detected (Not Detect); Parainfluenza Virus 1 Not Detected (Not Detect); Parainfluenza Virus 2 Not Detected (Not Detect); Parainfluenza Virus 3 Not Detected (Not Detect); Parainfluenza Virus 4 Not Detected (Not Detect); Respiratory Syncytial Virus Not Detected (Not Detect); SARS- CoV-2 Not Detected (Not Detecte)
[2023-05-06] MEDS: PENICILLIN G BENZATHINE 1,200,000 UNIT/2 ML SYRINGE 1200000 UNIT IM (14:16)
== END 2023-05-06 15:00 | disposition home or self-care (01) ==
PROVIDERS: Emergency Provider Emergency Medicine; PCP Family Medicine
DX: J02.0 Streptococcal pharyngitis (principal); R07.9 Chest pain, unspecified; Z20.822 Contact with and (suspected) exposure to COVID-19
CPT/HCPCS: 36415; 80048; 82009; 83735; 85025; 86318; 87070; 87633; 87651; 93005; 96361; 96372; 96374; 99284; J0561; J1100